=== PATIENT | female | born 1985 | race Caucasian/White ===

== ENCOUNTER 2016-06-28 10:46 | Emergency (ER) | payer MEDICAID ==
[~2016-06-28] VITALS: Ht 149.9 cm; Wt 83.9 kg
[2016-06-28 10:46] VITALS: BP 116/53; PULSE 61; RESP 18; TEMP 96.7; O2SAT 97
[~2016-06-28 10:46] MED LIST: BECL8.7A6 INH; PROAIR INH; Singulair PO; TRAMADOL PO; VICODIN PO
--- NOTE | 2016-06-28 10:46 | NUR ---
BROUGHT BACK TO BED #7 AND TRIAGED. PT IS ACTIVELY VOMITING. REPORT GIVEN TO CLARA/SANCHEZ
--- NOTE | 2016-06-28 10:48 | NUR ---
ED MD Davis at bedside for Medical Examination.
--- NOTE | 2016-06-28 10:50 | NUR ---
PT arrived to ED via walk in with chief complaint of ABD pain since last night. PT states ABD to localized to right side at 8/10. Reports N/V overnight. Blood present in emesis. Unable to tolerate PO intake. Pain on ABD palpation. Hx of pancreatitis. Reports SUAREZ. Patient appears in no acute distress. Will continue to monitor.
--- NOTE | 2016-06-28 10:55 | NUR ---
PT ambulated to restroom w/o assistance
[2016-06-28] MEDS ORDERED: NACL 0.9% 1,000 ML IV ONE (11:01)
--- NOTE | 2016-06-28 11:18 | NUR ---
Medicated per MD orders. IVF infusing with no s/s of infiltration at this time. Will continue to monitor
[2016-06-28 11:25] LABS: BASOPHILS % (AUTO) 0.5 % (0.0-2.0); EOSINOPHILS # (AUTO) 0.4 K/uL (0.0-0.4); EOSINOPHILS % (AUTO) 4.1 % (0.0-4.0); HEMATOCRIT 41.3 % (36-48); HEMOGLOBIN 13.5 g/dL (12.0-16.0); LYMPHOCYTES # (AUTO) 2.1 K/uL (1.0-5.5); LYMPHOCYTES % (AUTO) 21.7 % (20.5-51.5); MEAN CORPUSCULAR HEMOGLOBIN 27 pg (27-31); MEAN CORPUSCULAR HGB CONC 33 % (32-36); MEAN CORPUSCULAR VOLUME 81 fL (79.0-98.0); MONOCYTES # (AUTO) 0.3 K/uL (0.0-1.0); MONOCYTES % (AUTO) 2.8 % (1.7-9.3); NEUTROPHILS # (AUTO) 6.8 K/uL (1.8-7.7); NEUTROPHILS % (AUTO) 70.9 % (40.0-70.0); PLATELET COUNT (AUTO) 349 K/uL (130-430); RED CELL DISTRIBUTION WIDTH 13.5 % (9.0-15.0); WHITE BLOOD COUNT (AUTO) 9.6 K/uL (4.8-10.8)
[2016-06-28] MEDS ORDERED: PANTOPRAZOLE SODIUM 40 MG/VIAL (PROTONIX) IVP ONE (11:30)
[2016-06-28] MEDS ORDERED: KETOROLAC TROMETHAMINE 30 MG VIAL IVP ONE (11:30)
[2016-06-28] MEDS ORDERED: PROCHLORPERAZINE EDISYLATE 10 MG/2 ML VIAL IVP ONE (11:30)
[2016-06-28 11:34] LABS: CALCIUM 9.1 mg/dL (8.4-11.0); CREATININE 0.78 mg/dL (0.55-1.30)
[2016-06-28 11:37] LABS: ALBUMIN 4.1 g/dL (3.4-4.8); TOTAL BILIRUBIN 0.4 mg/dL (0.0-1.0); TOTAL PROTEIN, SERUM 8.1 g/dL (6.4-8.3)
[2016-06-28] MEDS ORDERED: ACETAMINOPHEN 500 MG TABLET PO ONE (12:00)
--- NOTE | 2016-06-28 12:30 | NUR ---
Patient resting quietly. No acute distress noted.
--- NOTE | 2016-06-28 13:00 | NUR ---
Dr. Davis at bedside speaking with pt regarding ED results and follow up.
--- NOTE | 2016-06-28 13:12 | NUR ---
Pt eloped without discharge instructions and RX of zofran.
--- NOTE | 2016-06-28 16:05 | NUR ---
Called at home to come and machine pecan picker RX. States that she had a family emergency and had to leave in a hurry. States that her mother is a nurse and took out the IV without complication. Advised that leaving hospital with IV is grounds for calling police. Pt verbalized understanding. States that she will come back for RX and staff will reassess IV site.
--- NOTE | 2016-06-28 20:43 | NUR ---
Patient given written and verbal discharge instructions and verbalizes understanding. Rx of Zofran given. Patient educated on pain management and to follow up with PMD. Opportunity for questions provided and answered.
== END 2016-06-28 13:12 | disposition left against medical advice (07) ==
LOC: SED 10:46
DX: K92.0 Hematemesis (principal); R10.9 Unspecified abdominal pain; R11.0 Nausea; J45.909 Unspecified asthma, uncomplicated; Z53.20 Procedure and treatment not carried out because of patient's decision for unspecified reasons
CPT/HCPCS: 36415; 80053; 81025; 83690; 85025; 96361; 96374; 96375; 99284; C9113; J0780; J1885; J7030

== ENCOUNTER 2016-08-12 21:21 | Emergency (ER) | payer MEDICAID ==
[~2016-08-12] VITALS: Ht 149.9 cm; Wt 83.9 kg
[2016-08-12 21:38] VITALS: BP 126/75; PULSE 78; RESP 18; TEMP 98.3; O2SAT 98
--- NOTE | 2016-08-12 21:44 | NUR ---
Patient to ER bed 8 to gown for evaluation. Side rails up. Report given to China LÓPEZ.
--- NOTE | 2016-08-12 21:50 | NUR ---
Patient to ER C/O watery diarrhea for the past 2 weeks. Patient states that she recently was taking ABX and diarrhea started soon after finishing the ABX treatment. Also C/O mild headache 4/10, epigastric pain 7/10, and nausea. AAOx4, unlabored breathing, no signs of acute distress.
--- NOTE | 2016-08-12 22:06 | NUR ---
ER MD Harvey at bedside for evaluation
[2016-08-12] MEDS ORDERED: NACL 0.9% 1,000 ML IV ONE (22:17)
--- NOTE | 2016-08-12 22:40 | NUR ---
# 20 gauge angiocath placed to right ac. Use of asceptic technique. Opsite placed over site. Blood return noted. Blood for lab drawn from site. Flushed with 10 cc of normal saline. No evidence of infiltration noted. Patient tolerated well.
[2016-08-12 22:49] LABS: BASOPHILS # (AUTO) 0.1 K/uL (0.0-0.2); BASOPHILS % (AUTO) 0.6 % (0.0-2.0); EOSINOPHILS # (AUTO) 0.3 K/uL (0.0-0.4); EOSINOPHILS % (AUTO) 3.7 % (0.0-4.0); HEMATOCRIT 39.2 % (36-48); HEMOGLOBIN 12.8 g/dL (12.0-16.0); LYMPHOCYTES # (AUTO) 2.7 K/uL (1.0-5.5); LYMPHOCYTES % (AUTO) 31.8 % (20.5-51.5); MEAN CORPUSCULAR HEMOGLOBIN 27 pg (27-31); MEAN CORPUSCULAR HGB CONC 33 % (32-36); MEAN CORPUSCULAR VOLUME 82 fL (79.0-98.0); MONOCYTES # (AUTO) 0.6 K/uL (0.0-1.0); MONOCYTES % (AUTO) 7.1 % (1.7-9.3); NEUTROPHILS # (AUTO) 4.9 K/uL (1.8-7.7); NEUTROPHILS % (AUTO) 56.8 % (40.0-70.0); PLATELET COUNT (AUTO) 335 K/uL (130-430); RED CELL DISTRIBUTION WIDTH 13.6 % (9.0-15.0); WHITE BLOOD COUNT (AUTO) 8.6 K/uL (4.8-10.8)
[2016-08-12 23:03] LABS: CALCIUM 9.1 mg/dL (8.4-11.0); CREATININE 0.8 mg/dL (0.55-1.30); POTASSIUM 3.5 mmol/L (3.5-5.1)
[2016-08-12 23:08] LABS: TOTAL BILIRUBIN 0.4 mg/dL (0.0-1.0); TOTAL PROTEIN, SERUM 7.8 g/dL (6.4-8.3)
[2016-08-12 23:13] LABS: BILIRUBIN,URINE NEGATIVE (NEGATIVE); BLOOD, URINE NEGATIVE (NEGATIVE); CLARITY/URINE CLEAR (CLEAR); COLOR,URINE YELLOW (YELLOW); GLUCOSE,URINE NEGATIVE (NEGATIVE); KETONES,URINE NEGATIVE (NEGATIVE); LEUKOCYTE ESTERASE ,URINE NEGATIVE (NEGATIVE); NITRITE, URINE NEGATIVE (NEGATIVE); PH,URINE 5.5 (5.0-8.0); PROTEIN URINE TRACE (NEGATIVE); UROBILINOGEN,URINE 0.2 (0.2-1.0)
[2016-08-12 23:25] LABS: BACTERIA,URINE FEW /HPF (None Seen); MUCUS,URINE None Seen /LPF (None Seen); RBC,URINE 0-3 /HPF (0-3)
--- NOTE | 2016-08-12 23:27 | NUR ---
Patient is unable to provide emiliana sample, after multiple attempts. EER MD Harvey aware.
[2016-08-13 00:34] VITALS: BP 122/73; PULSE 74; RESP 17; TEMP 98.1; O2SAT 97
--- NOTE | 2016-08-13 00:34 | NUR ---
Patient given written and verbal discharge instructions and verbalizes understanding. ER MD Harvey discussed with patient the results and treatment provided. Patient in stable condition. ID arm band removed. IV catheter removed intact and dressing applied, no active bleeding. Patient educated on pain management and to follow up with PMD. Pain Scale 0/10. Opportunity for questions provided and answered.
== END 2016-08-13 00:34 | disposition home or self-care (01) ==
LOC: SED 21:21
DX: R19.7 Diarrhea, unspecified (principal); J45.909 Unspecified asthma, uncomplicated; Z90.49 Acquired absence of other specified parts of digestive tract
CPT/HCPCS: 36415; 80053; 81000; 81025; 85025; 87086; 87186; 87230; 89055; 96360; 99284; J7030

== ENCOUNTER 2016-08-27 23:21 | Emergency (ER) | payer MEDICAID ==
[~2016-08-27] VITALS: Ht 149.9 cm; Wt 87.1 kg
[2016-08-27 23:22] VITALS: BP_SYST 124
--- NOTE | 2016-08-27 23:45 | NUR ---
Dr. Rivero at bedside examing patient.
--- NOTE | 2016-08-27 23:45 | NUR ---
Patient to ER bed 07 to gown for evaluation. Side rails up. Report given to MARIBEL Blount.
--- NOTE | 2016-08-27 23:46 | NUR ---
Pt AOx4, ambulatory, presents to ED with complaint of abdominal pain, headache, nausea, diarrhea x 2 days. Pain 9/10. Pt states has hx of seizures and is afraid that her headache will trigger a seizure. Denies any allergies. No acute distress noted at this time. Will continue to monitor.
[2016-08-27] MEDS ORDERED: NACL 0.9% 1,000 ML IV ONE (23:48)
[2016-08-27 23:55] LABS: BILIRUBIN,URINE NEGATIVE (NEGATIVE); BLOOD, URINE NEGATIVE (NEGATIVE); CLARITY/URINE CLEAR (CLEAR); COLOR,URINE YELLOW (YELLOW); GLUCOSE,URINE NEGATIVE (NEGATIVE); KETONES,URINE NEGATIVE (NEGATIVE); LEUKOCYTE ESTERASE ,URINE TRACE (NEGATIVE); NITRITE, URINE NEGATIVE (NEGATIVE); PROTEIN URINE NEGATIVE (NEGATIVE); UROBILINOGEN,URINE 0.2 (0.2-1.0)
[2016-08-28] MEDS ORDERED: HYDROmorphone 1 MG INJ. 1 MG/ML AMPUL IM ONE
[2016-08-28] MEDS ORDERED: NACL 0.9% 1,000 ML IV ONE
[2016-08-28] MEDS ORDERED: ONDANSETRON HCL 4 MG/2 ML VIAL IVP ONE
[2016-08-28 00:04] LABS: BACTERIA,URINE FEW /HPF (None Seen); MUCUS,URINE None Seen /LPF (None Seen); RBC,URINE 0-3 /HPF (0-3)
[2016-08-28 00:17] LABS: BASOPHILS % (AUTO) 0.5 % (0.0-2.0); EOSINOPHILS # (AUTO) 0.6 K/uL (0.0-0.4); EOSINOPHILS % (AUTO) 6.3 % (0.0-4.0); HEMATOCRIT 37.2 % (36-48); HEMOGLOBIN 12.2 g/dL (12.0-16.0); LYMPHOCYTES # (AUTO) 3.4 K/uL (1.0-5.5); LYMPHOCYTES % (AUTO) 34.6 % (20.5-51.5); MEAN CORPUSCULAR HEMOGLOBIN 27 pg (27-31); MEAN CORPUSCULAR HGB CONC 33 % (32-36); MEAN CORPUSCULAR VOLUME 83 fL (79.0-98.0); MONOCYTES # (AUTO) 0.6 K/uL (0.0-1.0); MONOCYTES % (AUTO) 5.6 % (1.7-9.3); NEUTROPHILS # (AUTO) 5.3 K/uL (1.8-7.7); PLATELET COUNT (AUTO) 296 K/uL (130-430); RED CELL DISTRIBUTION WIDTH 13.8 % (9.0-15.0); WHITE BLOOD COUNT (AUTO) 9.9 K/uL (4.8-10.8)
[2016-08-28 00:23] LABS: CREATININE 0.75 mg/dL (0.55-1.30); POTASSIUM 3.6 mmol/L (3.5-5.1)
[2016-08-28 00:30] LABS: ALBUMIN 3.5 g/dL (3.4-4.8); TOTAL BILIRUBIN 0.1 mg/dL (0.0-1.0); TOTAL PROTEIN, SERUM 6.9 g/dL (6.4-8.3)
[2016-08-28 00:33] LABS: PROTHROMBIN TIME 10.7 SECS (9.5-12.5)
--- NOTE | 2016-08-28 01:00 | NUR ---
Patient reports pain 3/10 30 minutes after administration of Dilaudid. No adverse reactions noted. Will continue to monitor.
[2016-08-28] MEDS ORDERED: HYDROmorphone 1 MG INJ. 1 MG/ML AMPUL IVP ONE (02:15)
--- NOTE | 2016-08-28 03:00 | NUR ---
Patient reports pain 3/10 25 minutes after administration of Dilaudid. No adverse reactions noted. Will continue to monitor.
[2016-08-28 03:05] VITALS: BP_SYST 117
--- NOTE | 2016-08-28 03:05 | NUR ---
Patient given written and verbal discharge instructions and verbalizes understanding. ER MD discussed with patient the results and treatment provided. Patient in stable condition. ID arm band removed. IV catheter removed intact and dressing applied, no active bleeding. Rx of Zofran and Tylenol with Codeine #3 given. Patient educated on pain management and to follow up with PMD. Pain Scale 3/10. Opportunity for questions provided and answered.
== END 2016-08-28 03:05 | disposition home or self-care (01) ==
LOC: SED 23:21
DX: J11.1 Influenza due to unidentified influenza virus with other respiratory manifestations (principal); G44.209 Tension-type headache, unspecified, not intractable; J45.909 Unspecified asthma, uncomplicated
CPT/HCPCS: 36415; 80053; 81000; 82150; 83690; 85025; 85610; 85730; 86710; 87086; 96361; 96372; 96374; 96375; 99284; J1170; J2405; J7030

== ENCOUNTER 2017-02-03 21:59 | Emergency (ER) | payer MEDICAID ==
[~2017-02-03] VITALS: Ht 157.5 cm; Wt 65.3 kg
[2017-02-03 21:59] VITALS: BP_SYST 131
[2017-02-03] MEDS ORDERED: OXYCODONE/ACETAMINOPHEN *10*mg/325 mg TABLET PO ONE (23:30)
[2017-02-03 23:35] LABS: BILIRUBIN,URINE NEGATIVE (NEGATIVE); BLOOD, URINE TRACE (NEGATIVE); CLARITY/URINE CLEAR (CLEAR); COLOR,URINE YELLOW (YELLOW); GLUCOSE,URINE NEGATIVE (NEGATIVE); KETONES,URINE NEGATIVE (NEGATIVE); LEUKOCYTE ESTERASE ,URINE NEGATIVE (NEGATIVE); NITRITE, URINE NEGATIVE (NEGATIVE); PROTEIN URINE NEGATIVE (NEGATIVE); UROBILINOGEN,URINE 0.2 (0.2-1.0)
[2017-02-03 23:44] LABS: BACTERIA,URINE FEW /HPF (None Seen); RBC,URINE 0-3 /HPF (0-3); WBC,URINE 0-3 /HPF (0-3)
[2017-02-03] MEDS ORDERED: OXYCODONE/ACETAMINOPHEN *10*mg/325 mg TABLET ONE (23:53)
[2017-02-04 00:13] VITALS: BP_SYST 128
== END 2017-02-04 00:13 | disposition home or self-care (01) ==
LOC: SED 21:59
DX: A08.4 Viral intestinal infection, unspecified (principal); J45.909 Unspecified asthma, uncomplicated; Z98.51 Tubal ligation status
CPT/HCPCS: 74000-TC; 81000-TC; 81025; 99285

== ENCOUNTER 2017-02-05 00:38 | Emergency (ER) | payer MEDICAID ==
[~2017-02-05] VITALS: Ht 157.5 cm; Wt 64.4 kg
[2017-02-05 00:50] VITALS: BP_SYST 127
[2017-02-05] MEDS ORDERED: KETOROLAC TROMETHAMINE 60 MG/2 ML VIAL IM ONE (01:15)
[2017-02-05 02:22] VITALS: BP_SYST 124
== END 2017-02-05 02:22 | disposition home or self-care (01) ==
LOC: SED 00:38
DX: R10.9 Unspecified abdominal pain (principal); J45.909 Unspecified asthma, uncomplicated
CPT/HCPCS: 96372; 99283; J1885

== ENCOUNTER 2017-04-03 05:01 | Inpatient (IN) | payer MEDICAID ==
[~2017-04-03] VITALS: Ht 149.9 cm; Wt 75.4 kg
[~2017-04-03 05:01] MED LIST changes: -BECL8.7A6 INH; +IMI50 PO; +LEVE500T13 PO; -PROAIR INH; -Singulair PO; -TRAMADOL PO; -VICODIN PO
--- NOTE | 2017-04-03 05:14 | NUR ---
Placed in room 02 . Placed on nuclear monitoring technician, blood pressure machine and pulse oximeter. To gown for exam. Side rails up. Report given to MARIBEL Bernal.
--- NOTE | 2017-04-03 05:15 | NUR ---
Patient AAO x4, sitting in bed c/o neck and leg pain, states she has seizures and " I need to be admitted. I just left [facility] and was admitted, but I left because they didn't have any beds and my doctor told me to come here." Seizure pads placed on bed. Patient vital signs within normal range.No acute distress noted. Will continue to monitor.
[2017-04-03 05:16] VITALS: BP_SYST 121
--- NOTE | 2017-04-03 05:20 | NUR ---
ER at bedside examining patient.
[2017-04-03] MEDS ORDERED: LORazepam 2 MG/ML VIAL (FOR ER USE) IVP ONE (05:30)
[2017-04-03] MEDS ORDERED: NACL 0.9% 1,000 ML IV ONE (05:30)
[2017-04-03] MEDS ORDERED: ONDANSETRON HCL 4 MG/2 ML VIAL IVP ONE (05:30)
--- NOTE | 2017-04-03 05:40 | NUR ---
Patient gagging into emesis bag, no emesis noted.
[2017-04-03] MEDS ORDERED: KETOROLAC TROMETHAMINE 30 MG VIAL IVP ONE (05:45)
--- NOTE | 2017-04-03 05:45 | NUR ---
# 22 gauge angiocath placed to L Arm. Use of asceptic technique. Opsite placed over site. Blood return noted. Two patient identifiers used. Blood for lab drawn from site. Flushed with 10 cc of normal saline. No evidence of infiltration noted. Patient tolerated well.
--- NOTE | 2017-04-03 06:15 | NUR ---
Patient resting quietly. No acute distress noted. Vital signs within normal range.
--- NOTE | 2017-04-03 06:19 | NUR ---
Patient to radiology via wheelchair with tech.
[2017-04-03 06:26] LABS: HEMATOCRIT 41.2 % (36-48); HEMOGLOBIN 13.4 g/dL (12.0-16.0); MEAN CORPUSCULAR HEMOGLOBIN 27 pg (27-31); MEAN CORPUSCULAR HGB CONC 33 % (32-36); MEAN CORPUSCULAR VOLUME 84 fL (79.0-98.0); PLATELET COUNT (AUTO) 311 K/uL (130-430); RED BLOOD CELL COUNT(AUTO) 4.89 MIL/uL (4.2-6.2); RED CELL DISTRIBUTION WIDTH 13.4 % (9.0-15.0); WHITE BLOOD COUNT (AUTO) 9.1 K/uL (4.8-10.8)
[2017-04-03 06:48] LABS: ATYPICAL LYMPHOCYTES % 0 % (0-0); BAND % (MANUAL) 2 % (0-6); BASOPHILS % (MANUAL) 0 % (0-2); EOSINOPHILS % (MANUAL) 5 % (0-7); LYMPHOCYTES % (MANUAL) 64 % (20-46); MONOCYTES % (MANUAL) 4 % (0-11)
[2017-04-03 06:49] LABS: TOTAL BILIRUBIN 0.2 mg/dL (0.0-1.0)
[2017-04-03 06:59] LABS: ALBUMIN 3.7 g/dL (3.4-4.8); CALCIUM 9.5 mg/dL (8.4-11.0); CREATININE 0.58 mg/dL (0.55-1.30)
[2017-04-03 07:01] LABS: POTASSIUM 4.1 mmol/L (3.5-5.1)
[2017-04-03] MEDS ORDERED: ONDANSETRON HCL 4 MG/2 ML VIAL IVP PRN (07:15)
[2017-04-03 07:20] LABS: BILIRUBIN,URINE NEGATIVE (NEGATIVE); BLOOD, URINE NEGATIVE (NEGATIVE); CLARITY/URINE SL HAZY (CLEAR); COLOR,URINE YELLOW (YELLOW); GLUCOSE,URINE NEGATIVE (NEGATIVE); KETONES,URINE NEGATIVE (NEGATIVE); LEUKOCYTE ESTERASE ,URINE TRACE (NEGATIVE); NITRITE, URINE NEGATIVE (NEGATIVE); PH,URINE 6.5 (5.0-8.0); PROTEIN URINE TRACE (NEGATIVE); UROBILINOGEN,URINE 0.2 (0.2-1.0)
--- NOTE | 2017-04-03 07:26 | NUR ---
Patient will be admitted to care of Dr. Neumann. Admitted to Tele unit. Will go to room 114. Belongings list completed. Summary report printed. Report will be given at bedside.
--- NOTE | 2017-04-03 07:29 | NUR ---
ADMISSION NOTE Received patient from ER via gurney. Patient admitted with diagnosis of Seizures . Patient is awake, alert, oriented X . Patient oriented to hospital room, call light, toileting, pain management and safety-teach back done. Patient informed that Irasema will be her nurse and that their room number is [114-b]. Personal belongings checked and Belongings List documented. Call light within reach.
[2017-04-03 07:32] VITALS: BP_SYST 106
[2017-04-03 08:00] LABS: BACTERIA,URINE MODERATE /HPF (None Seen); RBC,URINE 0-3 /HPF (0-3)
[2017-04-03 08:01] LABS: MUCUS,URINE 1+ /LPF (None Seen)
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
[2017-04-03 08:23] LABS: OPIATE, URINE POSITIVE (NEG <=100)
[2017-04-03 08:24] LABS: BARBITURATE, URINE NEGATIVE (NEG <=200); BENZODIAZEPINE, URINE POSITIVE (NEG <=150); CANNABINOID, URINE NEGATIVE (NEG <=50); COCAINE, URINE NEGATIVE (NEG <=150); METHAMPHETAMINES SCREEN,URINE NEGATIVE (NEG <=500); PHENCYCLIDINE SCREEN,URINE NEGATIVE (NEG <=25); URINE AMPHETAMINE NEGATIVE (NEG <=500); URINE METHADONE NEGATIVE (NEG <=200); URINE OXYCODONE SCREEN POSITIVE (NEG <=100)
[2017-04-03 08:25] LABS: UR TRICYCLIC ANTIDEPRESSANTS NEGATIVE (NEG <=300); URINE PROPOXYPHENE SCREEN NEGATIVE (NEG <=300)
[2017-04-03 08:45] VITALS: BP_SYST 106
--- NOTE | 2017-04-03 10:41 | NUR ---
ROUNDS PT IS AWAKE AND ALERT. NO SIGNS OR SYMPTOMS OF DISTRESS OR SOB NOTED. PT COMPLAINS OF PAIN IN THE NECK. PT DOES NOT HAVE ANY PAIN MEDICATION. DR. BYRD HAS BEEN PAGED. BED IS AT LOWEST POSITION, CALL LIGHT WITHIN REACH, TWO SIDE RAILS UP. WILL CONTINUE TO MONITOR.
--- NOTE | 2017-04-03 10:42 | NUR ---
PAGED PAGED RAFAEL MC AT [phone] SPOKE WITH ARUN.
[2017-04-03] MEDS ORDERED: levETIRAcetam 500 MG TABLET PO ONE ×2 (11:00→15:45)
[2017-04-03] MEDS: HYDROmorphone 2 MG TAB PO PRN ×2 (11:34→20:25)
--- NOTE | 2017-04-03 11:37 | NUR ---
DR BYRD CALLED BACK SPOKE WITH DR. BYRD REGARDING PT AND HE ORDERED KEPPRA AND DILAUDID FOR PAIN. PT WAS GIVEN BOTH.
--- NOTE | 2017-04-03 12:29 | NUR ---
ROUNDS PT IS SLEEPING BUT IS EASILY AWAKEN. NO SIGNS OR SYMPTOMS OF DISTRESS OR SOB NOTED. PT STATES PAIN PAIN HAS DECREASED TO A 7 OUT OF 10 FROM EARLIER. PT REMOVED NECK BRACE BECAUSE SHE STATES IT DOES NOT HELP WITH HER TRYING TO FALL ASLEEP. BED IS AT LOWEST POSITION, CALL LIGHT WITHIN REACH, BED ALARM IS ON, TWO SIDE RAILS UP. WILL CONTINUE TO MONITOR.
[2017-04-03 12:56] VITALS: BP_SYST 113
[2017-04-03] MEDS: LORazepam 2 MG/ML VIAL IVP PRN ×2 (13:49→22:02)
--- NOTE | 2017-04-03 13:51 | NUR ---
PRN ATIVAN GIVEN PT IS CRYING AND STATES THAT SHE IS ANXIOUS AND AGITATED.
--- NOTE | 2017-04-03 14:22 | NUR ---
ROUNDS PT IS AWAKE AND ALERT. PT IS VISIBLY MORE RELAXED. PT STATES HEADACHE IS STILL PRESENT BUT SHE DOES NOT HAVE ANXIETY ANY MORE. RELOCATED IV TO RIGHT FOREARM 22G DUE TO PREVIOUS IV INFILTRATION. CURRENT NEEDS ARE MET. BED IS AT LOWEST POSITION, CALL LIGHT WITHIN REACH, TWO SIDE RAILS UP. WILL CONTINUE TO MONITOR.
[2017-04-03 16:00] VITALS: BP_SYST 110
--- NOTE | 2017-04-03 16:02 | NUR ---
CONSULTATION PAGED REASON FOR CONSULTATION:SEIZURE WAS CONSULT CALLED?Y PERSON WHO WAS NOTIFIED:NICKOLAS BECKFORD CONSULTING PHYSICIAN:NICKOLAS BECKFORD BENEFITS CONSULTING ANALYST SPECIALTY:NEURO BENEFITS CONSULTING ANALYST PHONE NUMBER:[phone] ORDERING PHYSICIAN:[facility]
--- NOTE | 2017-04-03 16:07 | NUR ---
CONSULTATION PAGED REASON FOR CONSULTATION:PAIN WAS CONSULT CALLED?Y PERSON WHO WAS NOTIFIED:LEFT VOICEMAIL CONSULTING PHYSICIAN:KATHRYN WHITE RIVETER HAND SPECIALTY:PAIN TRANSPORTATION MODELER PHONE NUMBER:[phone] ORDERING PHYSICIAN:RAFAEL MC
--- NOTE | 2017-04-03 16:22 | NUR ---
ROUNDS PT IS SLEEPING BUT IS EASILY AWAKEN. GAVE ORDERED KEPPRA. PT IS COMPLAINING OF PAIN BUT SHE IS NOT DUE TO PAIN MEDICATION AT THIS TIME. ADVISED HER THAT IMETREX WAS AVAILABLE FOR HER MIGRAINE BUT PT REFUSED. BED IS AT LOWEST POSITION, CALL LIGHT WITHIN REACH, TWO SIDE RAILS UP. WILL CONTINUE TO MONITOR.
--- NOTE | 2017-04-03 17:30 | NUR ---
DR. REBEKAH PATTON ORDERED EEG.
--- NOTE | 2017-04-03 18:25 | NUR ---
CLOSING NOTE PT IS RESTING IN BED, NO SIGNS OR SYMPTOMS OF DISTRESS OR SOB NOTED. CURRENT NEEDS ARE MET. BED IS AT LOWEST POSITION, CALL LIGHT WITHIN REACH, TWO SIDE RAILS UP. WILL CONTINUE TO MONITOR UNTIL CARE AND REPORT IS GIVEN TO ATHLETICS TEACHER NURSE.
--- NOTE | 2017-04-03 18:40 | NUR ---
DR. YOVANI PATTON
--- NOTE | 2017-04-03 19:25 | NUR ---
BEDSIDE REPORT DONE. PATIENT IN BED AWAKE ORIENTED X4.DENIES SOB ,HAS TOLERABLE NECK AND LEG PAIN. ASKING WHEN IS PAIN MED DUE. WEARING SOFT COLLAR.ON TELEMETRY,SINUS RHYTHM. SALINE LOCK TO LEFT AC. TOLD PATIENT WILL BE BACK FOR VITAL SIGNS AND MEDS.
--- NOTE | 2017-04-03 19:55 | NUR ---
SAW PATIENT ON THE DOOR ON WAY TO BATHROOM.
--- NOTE | 2017-04-03 20:03 | NUR ---
SEEN PATIENT ON THE FLOOR SUPINE POSITION SHAKING ARMS AND LEGS FOR 2 SECONDS. CALLED HER NAME X2 SLOWLY OPENS HIS EYES.CALLED FOR HELP ,THEN RAPID RESPONSE CALLED AT 2006HR. TEAM ARRIVED. PATIENT FULLY AWAKE.PATIENT MANAGED TO GET UP WITH ASSIST. CHECKED HEAD ARMS LEGS FOR INJURY,NO BRUISES OR BUMPS. MOVED TO ROOM 113A. COMPLAIN OF HEAD ACHE ,NOT NEW ,PAIN ON BOTH LEGS. DILAUDID 2MG IV PO GIVEN. 2024HR. CARSON WU NOTIFIED, NO ORDERS. STATED DO NOT GIVE TOO MUCH PAIN MEDS.
[2017-04-03 20:15] VITALS: BP_SYST 111
--- NOTE | 2017-04-03 20:15 | NUR ---
Paged Dr. Neumann Paged Dr. Neumann, dialed [phone], s/w Selvin.
[2017-04-03] MEDS: levETIRAcetam 500 MG TABLET PO SCH (20:25)
[2017-04-03] MEDS ORDERED: SUMAtriptan SUCCINATE 50 MG TABLET PO PRN (21:00)
[2017-04-03] MEDS ORDERED: levETIRAcetam 500 MG TABLET PO SCH (21:00)
--- NOTE | 2017-04-03 22:02 | NUR ---
ANXIETY: ANXIOUS,TALKING TO FRIEND VIA CELL PHONE,ASKED FOR MEDS TO RELAX HER. ATIVAN 1MG IV GIVEN.
[2017-04-04 00:30] VITALS: BP_SYST 106
[2017-04-04] MEDS: HYDROcodone/ACETAMIN 10-325 MG TAB PO PRN ×4 (01:41→21:01)
--- NOTE | 2017-04-04 01:41 | NUR ---
PAIN: AWAKENED. COMPLAIN OF HEADACHE/BACK AND LEGS PAIN .NORCO 10MG PO GIVEN.
--- NOTE | 2017-04-04 03:30 | NUR ---
ROUNDS: PATIENT SLEEPING. NO DISTRESS.
--- NOTE | 2017-04-04 06:30 | NUR ---
CLOSING: PATIENT WOKE UP. ASSISTED TO BATHROOM TO VOID. COMPLAIN OF PAIN. DILAUDID 2MG PO GIVEN. BED ALARM ON. RE EDUCATED ON FALL PRECAUTION.WILL GIVE REPORT TO AM RNR FOR CONTINUITY OF CARE.NO ACUTE CARDIOPULMONARY DISTRESS.
[2017-04-04] MEDS: HYDROmorphone 2 MG TAB PO PRN ×4 (06:47→23:57)
[2017-04-04 08:30] VITALS: BP_SYST 106
--- NOTE | 2017-04-04 08:30 | NUR ---
OPENING NOTE REPORT IS RECEIVED FROM BOX LINING MACHINE FEEDER NURSE AND CARE IS ENDORSED OVER TO MYSELF. PT IS RECEIVED AWAKE, ALERT, AND ORIENTED X4. PT COMPLAINS OF NECK PAIN AND HEADACHE. I ASKED PT IF SHE WOULD LIKE IMETREX FOR HEADACHE BUT PT REFUSED AND WANTS NORCO INSTEAD. MORNING MEDICATIONS WERE GIVEN AND TOLERATED WELL. I ADVISED PT OF INCREASE RISK OF FALLS AND TURNED ON PT BED ALARM. SIDE RAILS ARE PADDED AND THREE ARE UP, CALL LIGHT AND PHONE ARE WITHIN REACH AND PT WAS TAUGHT HOW TO USE THEM. WILL CONTINUE TO MONITOR.
[2017-04-04] MEDS: levETIRAcetam 500 MG TABLET PO SCH ×2 (08:47→21:00)
--- NOTE | 2017-04-04 10:49 | NUR ---
ROUNDS PT IS RESTING IN BED ON HER CELL PHONE. NO SIGNS OR SYMPTOMS OF DISTRESS OR SOB NOTED. CURRENT NEEDS ARE MET. BED IS AT LOWEST POSITION, BED ALARM IS ON, THREE SIDE RAILS UP, CALL LIGHT WITHIN REACH, PHONE WITHIN REACH. WILL CONTINUE TO MONITOR.
--- NOTE | 2017-04-04 11:04 | NUR ---
GAVE PRN IMETREX PT COMPLAINED OF MIGRANE AND GAVE PRN IMETREX.
[2017-04-04] MEDS: LORazepam 2 MG/ML VIAL IVP PRN ×2 (11:53→22:16)
--- NOTE | 2017-04-04 11:59 | NUR ---
GAVE PRN ATIVAN PT STATES THAT HER PAIN LEVEL HAS INCREASED BUT DUE TO LAST ADMINISTRATION OF DILAUDID SHE IS NOT DUE YET. I ASKED HER IF SHE WANTS ATIVAN SINCE SHE IS AGITATED SHE SAID YES. I ADMINISTERED IV ATIVAN. PT TOLERATED IT WELL.
--- NOTE | 2017-04-04 12:00 | NUR ---
EEG AT BEDSIDE.
[2017-04-04 12:34] VITALS: BP_SYST 117
--- NOTE | 2017-04-04 12:45 | NUR ---
ROUNDS PT IS AWAKE AND ALERT. NO SIGNS OR SYMPTOMS OF DISTRESS OR SOB NOTED. EEG IS COMPLETE. PT COMPLAINED OF PAIN IN NECK AREA 9 OUT OF 10 AND GAVE PRN NORCO. ADVISED OF INCREASED RISK FOR FALLS AND TO USE THE CALL LIGHT FOR ASSISTANCE GETTING UP. BED IS AT LOWEST POSITION, CALL LIGHT WITHIN REACH, THREE SIDE RAILS UP, BED ALARM IS ON. WILL CONTINUE TO MONITOR.
--- NOTE | 2017-04-04 14:11 | NUR ---
ROUNDS PT IS AWAKE AND ALERT. NO SIGNS OR SYMPTOMS OF DISTRESS OR SOB NOTED. PT WANTED TO USE THE BATHROOM AND I ASSISTED PT. I HAD HER SIT ON THE SIDE OF THE TO DANGLE HER FEET, THEN USED A WALKER TO WALK TO THE BATHROOM. PT TOLERATED WALK WELL BUT COMPLAINED OF MILD NAUSEA. ADVISED PT IF SHE WANTED ZOFRAN FOR THE NAUSEA BUT SHE REFUSED STATING THAT ONCE SHE RETURNS TO BED, IT WILL SUBSIDE. ADVISED PT THAT SHE WOULD BE ELIGIBLE FOR NEXT PAIN MEDICATION AROUND 1500. ASSISTED BACK TO BED, TURNED ON BED ALARM, THREE SIDE RAILS UP, BED IS AT LOWEST POSITION, CALL LIGHT WITHIN REACH. WILL CONTINUE TO MONITOR.
--- NOTE | 2017-04-04 14:45 | NUR ---
DR. CARSON PATTON DR. SPOKE TO PT REGARDING PAIN MANAGEMENT OPTIONS AND THAT NO IV DILAUDID IS AVAILABLE IN THE HOSPITAL.
--- NOTE | 2017-04-04 15:05 | NUR ---
PRN NORCO PT REQUESTED NORCO FOR PAIN OF 6 OUT OF 10 IN THE NECK AREA. ADVISED PT OF INCREASE RISK FOR FALLS AND WROTE ON WHITE BOARD WHEN THE NEXT PAIN MEDICATION IS ELIGIBLE. MOTHER WAS AT BEDSIDE. BED IS AT LOWEST POSITION, CALL LIGHT WITHIN REACH, THREE SIDE RAILS UP, BED ALARM IS ON. WILL CONTINUE TO MONITOR.
--- NOTE | 2017-04-04 15:40 | NUR ---
WALKED WITH PT PT WAS COMPLAINING OF BEING TIRED OF BEING IN BED AND ASSISTED PT WITH WALKING WITH A WALKER DOWN THE MURRY AND SHE DID WELL. NO SIGNS OR SYMPTOMS OF DISTRESS WHILE WALKING. ASSISTED PT BACK TO BED AND ADVISED PT TO USE CALL LIGHT WHEN SHE NEEDS TO GET UP. CURRENT NEEDS ARE MET. BED IS AT LOWEST POSITION, CALL LIGHT WITHIN REACH, THREE SIDE RAILS UP, BED ALARM IS ON. WILL CONTINUE TO MONITOR.
--- NOTE | 2017-04-04 16:12 | NUR ---
PSYCH CONSULT CALLED TO DR NEGRO, RE: DEPRESSION. SPOKE TO MARK
--- NOTE | 2017-04-04 16:19 | NUR ---
ROUNDS PT IS AWAKE AND ALERT AND IS CURRENTLY ON HER CELL PHONE. NO SIGNS OR SYMPTOMS OF DISTRESS OR SOB NOTED. PT STATES PAIN HAS REDUCED TO 3 OUT OF 10 AND IS CURRENTLY TOLERABLE. ADVISED PT OF NEXT PAIN MEDICATION WHEN IT SI AVAILABLE NEXT AND I WROTE IT ON THE WHITE BOARD. CURRENT NEEDS ARE MET. BED IS AT LOWEST POSITION, CALL LIGHT WITHIN REACH, THREE SIDE RAILS UP, BED ALARM IS ON. WILL CONTINUE TO MONITOR.
[2017-04-04 16:43] VITALS: BP_SYST 115
--- NOTE | 2017-04-04 18:09 | NUR ---
CLOSING NOTE PT IS LEFT RESTING IN BED. NO SIGNS OR SYMPTOMS OF DISTRESS OR SOB NOTED. CURRENT NEEDS ARE MET. BED IS AT LOWEST POSITION, BED ALARM IS ON, CALL LIGHT WITHIN REACH, THREE SIDE RAILS UP, PT ADVISED TO USE CALL LIGHT IF SHE WANTS TO GET UP. WILL CONTINUE TO MONITOR UNTIL CARE IS ENDORSED OVER TO REQUISITION APPROVER NURSE.
--- NOTE | 2017-04-04 18:37 | NUR ---
GAVE PRN DILAUDID PER PT REQUEST OF PAIN LEVEL OF 8 OUT OF 10 IN NECK AREA. PT ADVISED OF INCREASED RISK OF FALLS AND TO USE CALL LIGHT IF SHE WANTS TO GET UP. BED IS AT LOWEST POSITION, CALL LIGHT WITHIN REACH, THREE SIDE RAILS UP, BED ALARMS IS ON. WILL CONTINUE TO MONITOR.
--- NOTE | 2017-04-04 19:50 | NUR ---
ROUNDS PATIENT RESTING COMFORTABLY IN BED, NOT IN DISTRESS, VITALS STABLE. DENIES ANY PAIN AND DISCOMFORT AT THIS TIME. ASSESSMENT DONE AND DOCUMENTED. SEE FLOWSHEET. NEEDS ATTENDED TO. SAFETY, FALL AND SEIZURE PRECAUTION MEASURES IN PLACED. BED IN LOW AND LOCKED POSITION. CALL LIGHT PLACED WITHIN REACH.
[2017-04-04 20:00] VITALS: BP_SYST 107
--- NOTE | 2017-04-04 21:10 | NUR ---
MEDICATION DUE MEDICATIONS GIVEN SCHEDULED, TOLERATED WELL. WILL CONTINUE TO MONITOR.
[2017-04-04] MEDS ORDERED: DEXTROSE 50% JECT 50 ML DISP.SYRIN IVP PRN (21:15)
[2017-04-04] MEDS ORDERED: INSULIN REGULAR, HUMAN 100 UNITS/ML, 10 ML VIAL (novoLIN R) SUBCUT PRN (21:15)
--- NOTE | 2017-04-04 22:44 | NUR ---
pagealejandra paged for Dr Joesph Pittman, dialed . s/w Nae.
--- NOTE | 2017-04-05 00:10 | NUR ---
PATIENT RESTING: Patient resting quietly. No acute distress noted. Vital signs within normal range.
[2017-04-05 00:31] VITALS: BP_SYST 98
[2017-04-05] MEDS: LORazepam 2 MG/ML VIAL IVP PRN ×2 (01:23→11:19)
--- NOTE | 2017-04-05 04:13 | NUR ---
PATIENT RESTING: Patient resting quietly. No acute distress noted. Vital signs within normal range.
[2017-04-05] MEDS: HYDROmorphone 2 MG TAB PO PRN (06:33)
--- NOTE | 2017-04-05 06:47 | NUR ---
CLOSING NOTES PATIENT AWAKE, VITALS STABLE, ACCU CHECK DONE WITH BLOOD SUGAR OF 89. C/O OF SEVERE PAIN ON HER NECK, 8/10 PAIN SCALE. DILAUDID 2 MG PO GIVEN ORDERED PRN. ALL NEEDS ATTENDED TO. SAFETY, FALL AND SEIZURE PRECAUTION MEASURES MAINTAINED. CALL LIGHT PLACED WITHIN REACH.
[2017-04-05 07:52] VITALS: BP_SYST 98
--- NOTE | 2017-04-05 08:00 | NUR ---
Received patient in bed alert and oriented x4. She verbalized frustration that she is not ordered Dilaudid IV in her hospital stay this time. She stated she is having headaches and right sided neck pains. She requests that Dr. Pink, the pain management doctor be called for IV Dilaudid pain medications. She has a neck immobilizer collar on, ambulated with walker, gait appear steady. Informed her that I will contact Dr. Pink and relay her request.
--- NOTE | 2017-04-05 08:54 | NUR ---
PSYCH CONSULT FOLLOW UP REASON FOR CONSULTATION:DEPRESSION WAS CONSULT CALLED?Y PERSON WHO WAS NOTIFIED:ANDRES CONSULTING PHYSICIAN:HEVER DUEÑAS (CALLIE PERALTA AIRPORT MANAGER) AUTOMATIC PATTERN EDGER SPECIALTY:PSYCH AUTOMATIC PATTERN EDGER PHONE NUMBER:[phone] ORDERING PHYSICIAN:RAFAEL MC
[2017-04-05] MEDS: levETIRAcetam 500 MG TABLET PO SCH (09:21)
--- NOTE | 2017-04-05 10:00 | NUR ---
Pt in her bed upset that Dr. Pink has not come nor did her attending doctor. She stated that if she do not get IV Dilaudid she wants to go home. She stated she will go to another hospital ([facility]) where she can get good pain control with IV pain medications. She stated she has reported Dr. Neumann and the hospital to the [facility] but they have not done anything. She stated she report to the State as well. Relayed message to Dr. Neumann. Discharge order done. He spoke with patient with charge nurse.
--- NOTE | 2017-04-05 11:32 | NUR ---
Pt c/o nausea, no vomiting. She is requesting medication to rid of her nausea. Zofran 4 mg IV given. Pt also c/o of a lot of pains, requesting IV Dilaudid but no order. She is waiting for Dr. Pink if he would order IV Dilaudid while she is inpatient. She wants him called. Dr. Pink paged. Awaiting for his response. Pt requested Ativan IV while waiting for Dr. Pink. Ativan 1 mg IV given. Pt laid in bed. Instructed her to use her nurse call light, not to get up on her own for assistance. She verbalized understanding and compliance. Pt has walker at bedside. 1039 - Patient calls back and wants to be discharged so she can go to another hospital ([facility] Will contact Attending, Dr. Neumann.
[2017-04-05] MEDS: HYDROcodone/ACETAMIN 10-325 MG TAB PO PRN (11:54)
--- NOTE | 2017-04-05 12:30 | NUR ---
Pt all ready for discharge. She stated she will be picked up by her sister in law. Pt wheeled out to lobby and waited for her sister in law to arrive. She was picked up in a private white van by her sister in law and family. Patient in no distress but is upset that she was not given IV pain meds this inpt hospital admission.
[2017-04-05 12:31] VITALS: BP_SYST 138
[2017-04-05 12:49] VITALS: BP_SYST 99
--- NOTE | 2017-04-07 15:59 | NUR ---
Discharge Follow Up Phone Call: MASTER CONTROL TECHNICIAN called and spoke with pt ([phone]). Pt states that she is still having pain; pt's prescriptions have been filled; there are no questions regarding discharge or medication instructions; pt requested assistance with scheduling PCP follow up appointment. MASTER CONTROL TECHNICIAN called pt's PCP, Dr. Trivedi's, office ([phone]) and spoke with Kervin. MASTER CONTROL TECHNICIAN obtained a follow up appointment for pt on 04/08/17 at 10:30am. MASTER CONTROL TECHNICIAN called pt back and provided follow up appointment details. Pt did not express any other needs or concerns and denied the need for additional follow up at this time. No further follow up phone calls required at this time.
== END 2017-04-05 13:20 | disposition home or self-care (01) | DRG 53 ==
LOC: SED 05:01 → STU 07:14
PROVIDERS: ADMIT Internal Medicine; ATTEND Internal Medicine
DX: G40.909 Epilepsy, unspecified, not intractable, without status epilepticus (principal); F11.20 Opioid dependence, uncomplicated; G89.4 Chronic pain syndrome; G43.909 Migraine, unspecified, not intractable, without status migrainosus; J45.909 Unspecified asthma, uncomplicated; E66.9 Obesity, unspecified; Z68.33 Body mass index [BMI] 33.0-33.9, adult
CPT/HCPCS: 36415; 71046-TC; 80053; 80307; 81000-TC; 81025; 82962; 83735-TC; 84703; 85007; 85027; 87081; 87086; 93005; 95816; 96361; 96374; 96375; 99285; J1885; J2060; J2405; J7030

== ENCOUNTER 2018-05-14 13:27 | Emergency (ER) | payer MEDICAID ==
[~2018-05-14] VITALS: Ht 149.9 cm; Wt 79.4 kg
[~2018-05-14 13:27] MED LIST changes: -LEVE500T13 PO; +LEVE500T9 PO
[2018-05-14 13:41] VITALS: BP_SYST 158
[2018-05-14] MEDS ORDERED: KETOROLAC TROMETHAMINE 60 MG/2 ML VIAL IM ONE (13:45)
[2018-05-14 15:33] VITALS: BP_SYST 148
== END 2018-05-14 15:33 | disposition home or self-care (01) ==
LOC: SED 13:27
DX: S80.02XA Contusion of left knee, initial encounter (principal); G40.909 Epilepsy, unspecified, not intractable, without status epilepticus; G89.29 Other chronic pain; J45.909 Unspecified asthma, uncomplicated; J44.9 Chronic obstructive pulmonary disease, unspecified; E11.9 Type 2 diabetes mellitus without complications; I10 Essential (primary) hypertension; E07.9 Disorder of thyroid, unspecified; Z95.0 Presence of cardiac pacemaker; Z90.49 Acquired absence of other specified parts of digestive tract; Z98.51 Tubal ligation status; Z79.899 Other long term (current) drug therapy; W19.XXXA Unspecified fall, initial encounter; Y93.89 Activity, other specified; Y92.89 Other specified places as the place of occurrence of the external cause; Y99.8 Other external cause status
CPT/HCPCS: 73564; 96372; 99283; J1885

== ENCOUNTER 2018-10-25 05:21 | Emergency (ER) | payer MEDICAID ==
[~2018-10-25] VITALS: Ht 149.9 cm; Wt 73.9 kg
[2018-10-25 05:40] VITALS: BP_SYST 126
--- NOTE | 2018-10-25 05:40 | NUR ---
Patient to ER bed 04 to gown for evaluation. Side rails up. Report given to MARIBEL Hirsch.
--- NOTE | 2018-10-25 06:00 | NUR ---
Pt BIB family to ED C/O L Leg pain from S/P fall D/T having 2 seizure activities earlier today. Pt also states that her Mother is an RN and gave her 2 Toradol shots today without relief. No other complaints and or injuries noted. VSS no s/s of acute distress. Resting on gurney with rails up
--- NOTE | 2018-10-25 06:18 | NUR ---
Dr. Hutson bedside for Pt eval
[2018-10-25 06:43] LABS: BASOPHILS # (AUTO) 0.1 K/uL (0.0-0.2); BASOPHILS % (AUTO) 0.6 % (0.0-2.0); EOSINOPHILS % (AUTO) 0.1 % (0.0-4.0); HEMATOCRIT 38.6 % (36-48); HEMOGLOBIN 12.7 g/dL (12.0-16.0); LYMPHOCYTES # (AUTO) 1.9 K/uL (1.0-5.5); LYMPHOCYTES % (AUTO) 15.4 % (20.5-51.5); MEAN CORPUSCULAR HEMOGLOBIN 28 pg (27-31); MEAN CORPUSCULAR HGB CONC 33 % (32-36); MEAN CORPUSCULAR VOLUME 86 fL (79.0-98.0); MONOCYTES # (AUTO) 0.9 K/uL (0.0-1.0); MONOCYTES % (AUTO) 7.1 % (1.7-9.3); NEUTROPHILS # (AUTO) 9.5 K/uL (1.8-7.7); NEUTROPHILS % (AUTO) 76.8 % (40.0-70.0); PLATELET COUNT (AUTO) 303 K/uL (130-430); RED BLOOD CELL COUNT(AUTO) 4.48 MIL/uL (4.2-6.2); WHITE BLOOD COUNT (AUTO) 12.4 K/uL (4.8-10.8)
[2018-10-25] MEDS ORDERED: MORPHINE 4 MG/ML INJ. SYRINGE IM ONE (06:45)
[2018-10-25 06:58] LABS: CALCIUM 8.6 mg/dL (8.4-11.0); CREATININE 0.68 mg/dL (0.55-1.30); POTASSIUM 3.7 mmol/L (3.5-5.1)
--- NOTE | 2018-10-25 06:58 | NUR ---
Portable X Ray bedside, well tolerated
[2018-10-25 07:03] LABS: ALBUMIN 3.3 g/dL (3.4-4.8); TOTAL BILIRUBIN 0.3 mg/dL (0.0-1.0)
--- NOTE | 2018-10-25 07:15 | NUR ---
Received report from MARIBEL Hirsch.
[2018-10-25 07:18] LABS: BARBITURATE, URINE NEGATIVE (NEG <=200); BENZODIAZEPINE, URINE NEGATIVE (NEG <=150); CANNABINOID, URINE NEGATIVE (NEG <=50); COCAINE, URINE NEGATIVE (NEG <=150); METHAMPHETAMINES SCREEN,URINE POSITIVE (NEG <=500); OPIATE, URINE POSITIVE (NEG <=100); PHENCYCLIDINE SCREEN,URINE NEGATIVE (NEG <=25); UR TRICYCLIC ANTIDEPRESSANTS NEGATIVE (NEG <=300); URINE AMPHETAMINE NEGATIVE (NEG <=500); URINE METHADONE NEGATIVE (NEG <=200); URINE OXYCODONE SCREEN NEGATIVE (NEG <=100); URINE PROPOXYPHENE SCREEN NEGATIVE (NEG <=300)
--- NOTE | 2018-10-25 08:55 | NUR ---
pt resting comfortable in bed, No seizure activity seen, Mom here to take pt home
[2018-10-25 09:01] VITALS: BP_SYST 128
--- NOTE | 2018-10-25 09:03 | NUR ---
Patient given written and verbal discharge instructions and verbalizes understanding. ER MD discussed with patient the results and treatment provided. Patient in stable condition. ID arm band removed. IV catheter removed intact and dressing applied, no active bleeding. Rx of flexeril, naproxen given. Patient educated on pain management and to follow up with PMD. Pain Scale 0/10 Opportunity for questions provided and answered. Medication side effect fact sheet provided.
== END 2018-10-25 09:03 | disposition home or self-care (01) ==
LOC: SED 05:21
DX: S80.12XA Contusion of left lower leg, initial encounter (principal); R56.9 Unspecified convulsions; J45.909 Unspecified asthma, uncomplicated; Z79.899 Other long term (current) drug therapy; W18.39XA Other fall on same level, initial encounter; Y93.89 Activity, other specified; Y92.89 Other specified places as the place of occurrence of the external cause; Y99.8 Other external cause status
CPT/HCPCS: 36415; 70450-TC; 73564; 73590-TC; 80053; 80307; 84703; 85025; 96374; 99284; J2270

== ENCOUNTER 2019-01-19 12:08 | Emergency (ER) | payer MEDICAID ==
[~2019-01-19] VITALS: Ht 149.9 cm; Wt 75.3 kg
[2019-01-19 12:10] VITALS: BP_SYST 124
--- NOTE | 2019-01-19 12:18 | NUR ---
ASSUMED CARE, PT LAYING ON GURPARVIN IN ROOM 3, REPORTS BEING HERE FOR SEIZURES X 2 TODAY WITNESSED BY MOTHER WHO IS NOT AT BEDSIDE AT THIS TIME. PT AAOX4, IN NAD. RESP EVEN AND UNLABORED, ON RA @98%. REPORTS SHE HAS HISTORY OF SEIZURES IN WHICH SHE SEES A NEUROLOGIST AND RECENTLY UPPED HER DOSAGE TO 2500MG A DAY FROM 1500MG. PT DENIES ANY TRAUMA TO HEAD. NO OBVIOUS LAC OR INJURY NOTED. SEIZURE PADS PLACED, WAITING FOR ER MD VALENZUELA.
--- NOTE | 2019-01-19 13:03 | NUR ---
DR CURTIS IN ROOM FOR EXAM.
[2019-01-19] MEDS ORDERED: ONDANSETRON HCL 4 MG/2 ML VIAL IVP ONE (13:15)
[2019-01-19] MEDS ORDERED: NACL 0.9% 1,000 ML IV ONE (13:15)
[2019-01-19] MEDS ORDERED: KETOROLAC TROMETHAMINE 30 MG VIAL IVP ONE (13:15)
--- NOTE | 2019-01-19 13:23 | NUR ---
MEDICTAED ORDERED, WILL CONT TO MONITOR.
[2019-01-19 13:25] LABS: BASOPHILS % (AUTO) 0.5 % (0.0-2.0); EOSINOPHILS # (AUTO) 0.1 K/uL (0.0-0.4); EOSINOPHILS % (AUTO) 0.9 % (0.0-4.0); HEMATOCRIT 41.5 % (36-48); HEMOGLOBIN 13.8 g/dL (12.0-16.0); LYMPHOCYTES # (AUTO) 1.7 K/uL (1.0-5.5); LYMPHOCYTES % (AUTO) 17.9 % (20.5-51.5); MEAN CORPUSCULAR HEMOGLOBIN 29 pg (27-31); MEAN CORPUSCULAR HGB CONC 33 % (32-36); MEAN CORPUSCULAR VOLUME 86 fL (79.0-98.0); MONOCYTES # (AUTO) 0.3 K/uL (0.0-1.0); MONOCYTES % (AUTO) 3.2 % (1.7-9.3); NEUTROPHILS # (AUTO) 7.4 K/uL (1.8-7.7); NEUTROPHILS % (AUTO) 77.5 % (40.0-70.0); PLATELET COUNT (AUTO) 309 K/uL (130-430); RED BLOOD CELL COUNT(AUTO) 4.81 MIL/uL (4.2-6.2); RED CELL DISTRIBUTION WIDTH 14.6 % (9.0-15.0); WHITE BLOOD COUNT (AUTO) 9.5 K/uL (4.8-10.8)
[2019-01-19 13:40] LABS: CALCIUM 9.2 mg/dL (8.4-11.0); CREATININE 0.73 mg/dL (0.55-1.30); POTASSIUM 3.6 mmol/L (3.5-5.1)
[2019-01-19 13:45] LABS: ALBUMIN 3.9 g/dL (3.4-4.8); TOTAL BILIRUBIN 0.4 mg/dL (0.0-1.0)
--- NOTE | 2019-01-19 13:46 | NUR ---
PT REPORTS CONTINUED PAIN AFTER THE TORADOL IV, REQUESTING SOMETHING STRONGER. DR CURTIS WILL BE INFORMED. VSS. IV FLUIDS INFUSING WELL. VSS.
[2019-01-19] MEDS ORDERED: MORPHINE 4 MG/ML INJ. SYRINGE IVP ONE (14:00)
[2019-01-19 14:53] VITALS: BP_SYST 117
--- NOTE | 2019-01-19 14:55 | NUR ---
Patient given written and verbal discharge instructions and verbalizes understanding. ER MD discussed with patient the results and treatment provided. Patient in stable condition. ID arm band removed. IV catheter removed intact and dressing applied, no active bleeding. Patient educated on pain management and to follow up with PMD. Pain Scale . Opportunity for questions provided and answered. Medication side effect fact sheet provided.
== END 2019-01-19 14:55 | disposition home or self-care (01) ==
LOC: SED 12:08
DX: R56.9 Unspecified convulsions (principal); R11.2 Nausea with vomiting, unspecified; Z79.899 Other long term (current) drug therapy
CPT/HCPCS: 36415; 80053; 85025; 96361; 96374; 96375; 99283; J1885; J2270; J2405; J7030

== ENCOUNTER 2019-02-22 04:38 | Emergency (ER) | payer MEDICAID ==
[~2019-02-22] VITALS: Ht 149.9 cm; Wt 73.5 kg
[2019-02-22 04:44] VITALS: BP_SYST 126
--- NOTE | 2019-02-22 04:50 | NUR ---
Pt placed to ER bed 05, report given to MARIBEL Tubbs.
--- NOTE | 2019-02-22 04:55 | NUR ---
RECEIVED PATIENT AAOX4 S/P PETIT SEIZURE, AND ASTHMA EXACERBATION, PATIENT EXPRESS PAIN TO REAR UPPER SHOULDER AND REAR NECK AREA 9/10. PATIENT IN NAD. NO SEIZURE ACTIVITY SINCE ARIVAL TO ED. PENDING ED MD VALENZUELA.
--- NOTE | 2019-02-22 05:06 | NUR ---
Dr. Rosario bedside for Pt eval
[2019-02-22] MEDS ORDERED: MORPHINE 4 MG/ML INJ. SYRINGE IM ONE (05:15)
[2019-02-22 06:10] VITALS: BP_SYST 116
--- NOTE | 2019-02-22 06:10 | NUR ---
Patient given written and verbal discharge instructions and verbalizes understanding. ER MD discussed with patient the results and treatment provided. Patient in stable condition. ID arm band removed. Rx for motrin and norco po given. Patient educated on pain management and to follow up with PMD. Pain Scale 3/10, improved from 10/10. Opportunity for questions provided and answered. Medication side effect fact sheet provided.
== END 2019-02-22 06:10 | disposition home or self-care (01) ==
LOC: SED 04:38
DX: M54.6 Pain in thoracic spine (principal); G89.29 Other chronic pain; J45.909 Unspecified asthma, uncomplicated; R56.9 Unspecified convulsions; M79.2 Neuralgia and neuritis, unspecified; Z79.899 Other long term (current) drug therapy; Z90.49 Acquired absence of other specified parts of digestive tract
CPT/HCPCS: 96372; 99283; J2270

== ENCOUNTER 2019-03-11 09:04 | Emergency (ER) | payer MEDICAID ==
[~2019-03-11] VITALS: Ht 149.9 cm; Wt 74.8 kg
[2019-03-11 09:05] VITALS: BP_SYST 99
[2019-03-11] MEDS ORDERED: KETAMINE 30 MG/3 ML SYRINGE 10 MG in NS 100 ML IV ONE (09:30)
[2019-03-11] MEDS ORDERED: MORPHINE 2 MG/ML INJ. SYRINGE IVP ONE (09:30)
[2019-03-11 10:06] LABS: BASOPHILS # (AUTO) 0.1 K/uL (0.0-0.2); BASOPHILS % (AUTO) 1.3 % (0.0-2.0); EOSINOPHILS # (AUTO) 0.2 K/uL (0.0-0.4); EOSINOPHILS % (AUTO) 1.5 % (0.0-4.0); HEMATOCRIT 43.2 % (36-48); HEMOGLOBIN 14.4 g/dL (12.0-16.0); LYMPHOCYTES # (AUTO) 1.5 K/uL (1.0-5.5); MEAN CORPUSCULAR HEMOGLOBIN 28 pg (27-31); MEAN CORPUSCULAR HGB CONC 33 % (32-36); MEAN CORPUSCULAR VOLUME 86 fL (79.0-98.0); MONOCYTES # (AUTO) 0.4 K/uL (0.0-1.0); MONOCYTES % (AUTO) 4.1 % (1.7-9.3); NEUTROPHILS % (AUTO) 78.1 % (40.0-70.0); PLATELET COUNT (AUTO) 358 K/uL (130-430); RED BLOOD CELL COUNT(AUTO) 5.06 MIL/uL (4.2-6.2); RED CELL DISTRIBUTION WIDTH 15.1 % (9.0-15.0); WHITE BLOOD COUNT (AUTO) 10.3 K/uL (4.8-10.8)
[2019-03-11] MEDS ORDERED: KETAMINE 30 MG/3 ML SYRINGE ONE (10:13)
[2019-03-11 10:17] LABS: CALCIUM 9.5 mg/dL (8.4-11.0); CREATININE 0.64 mg/dL (0.55-1.30); POTASSIUM 4.5 mmol/L (3.5-5.1)
[2019-03-11 10:22] LABS: TOTAL BILIRUBIN 0.4 mg/dL (0.0-1.0)
[2019-03-11 11:04] VITALS: BP_SYST 111
[2019-03-11 11:15] LABS: BARBITURATE, URINE NEGATIVE (NEG <=200); BENZODIAZEPINE, URINE POSITIVE (NEG <=150); CANNABINOID, URINE NEGATIVE (NEG <=50); COCAINE, URINE NEGATIVE (NEG <=150); METHAMPHETAMINES SCREEN,URINE NEGATIVE (NEG <=500); OPIATE, URINE POSITIVE (NEG <=100); PHENCYCLIDINE SCREEN,URINE NEGATIVE (NEG <=25); UR TRICYCLIC ANTIDEPRESSANTS POSITIVE (NEG <=300); URINE AMPHETAMINE NEGATIVE (NEG <=500); URINE METHADONE NEGATIVE (NEG <=200); URINE OXYCODONE SCREEN POSITIVE (NEG <=100); URINE PROPOXYPHENE SCREEN NEGATIVE (NEG <=300)
== END 2019-03-11 11:04 | disposition home or self-care (01) ==
LOC: SED 09:04
DX: R56.9 Unspecified convulsions (principal); G89.29 Other chronic pain; M54.2 Cervicalgia; J45.909 Unspecified asthma, uncomplicated
CPT/HCPCS: 36415; 80053; 80307; 81002; 81025; 85025; 96374; 96375; 99283; J2270; J7040

== ENCOUNTER 2019-03-12 03:03 | Emergency (ER) | payer MEDICAID ==
[~2019-03-12] VITALS: Ht 149.9 cm; Wt 75.3 kg
[2019-03-12 03:15] VITALS: BP_SYST 112
--- NOTE | 2019-03-12 03:15 | NUR ---
Placed in room 3 . Placed on cardiac care nurse, blood pressure machine and pulse oximeter. To gown for exam. Side rails up.
--- NOTE | 2019-03-12 03:29 | NUR ---
ER Dr. Hutson at bedside examining patient.
--- NOTE | 2019-03-12 03:31 | NUR ---
Pt brought in by . Pt awake, alert, oriented x4. Pt states that she has new onset of seizure activity this year, and has had 12-15 seizures in the past "few" months. Pt states that she no longer takes her seizure medication as prescribed, only taking her morphine at home, and needs ativan and pain medication to help with her seizures. Pt states that she recalls having a 4 minute seizure prior to coming to the ED today. Pt denies trauma, oral trauma, falls. Pt denies chest pain, nausea, vomiting, diarrhea, shortness of breath. Pt resting in ED bed comfortably with seizure precautions in place. VSS.
--- NOTE | 2019-03-12 03:31 | NUR ---
Pt states Tubal Ligation approx 10 years ago
[2019-03-12] MEDS ORDERED: ONDANSETRON HCL 4 MG/2 ML VIAL IVP ONE (03:45)
[2019-03-12 04:10] LABS: BASOPHILS # (AUTO) 0.1 K/uL (0.0-0.2); BASOPHILS % (AUTO) 0.6 % (0.0-2.0); EOSINOPHILS # (AUTO) 0.4 K/uL (0.0-0.4); EOSINOPHILS % (AUTO) 5.4 % (0.0-4.0); HEMATOCRIT 39.1 % (36-48); HEMOGLOBIN 12.9 g/dL (12.0-16.0); LYMPHOCYTES # (AUTO) 2.9 K/uL (1.0-5.5); LYMPHOCYTES % (AUTO) 34.7 % (20.5-51.5); MEAN CORPUSCULAR HEMOGLOBIN 29 pg (27-31); MEAN CORPUSCULAR HGB CONC 33 % (32-36); MEAN CORPUSCULAR VOLUME 87 fL (79.0-98.0); MONOCYTES # (AUTO) 0.6 K/uL (0.0-1.0); MONOCYTES % (AUTO) 6.7 % (1.7-9.3); NEUTROPHILS # (AUTO) 4.4 K/uL (1.8-7.7); NEUTROPHILS % (AUTO) 52.6 % (40.0-70.0); PLATELET COUNT (AUTO) 312 K/uL (130-430); RED BLOOD CELL COUNT(AUTO) 4.51 MIL/uL (4.2-6.2); RED CELL DISTRIBUTION WIDTH 15.2 % (9.0-15.0); WHITE BLOOD COUNT (AUTO) 8.3 K/uL (4.8-10.8)
[2019-03-12] MEDS ORDERED: KETAMINE 30 MG/3 ML SYRINGE IVP ONE ×2 (04:15→06:15)
[2019-03-12 04:21] LABS: CALCIUM 7.9 mg/dL (8.4-11.0); CREATININE 0.59 mg/dL (0.55-1.30); POTASSIUM 3.9 mmol/L (3.5-5.1)
[2019-03-12 04:27] LABS: ALBUMIN 3.3 g/dL (3.4-4.8); TOTAL BILIRUBIN 0.2 mg/dL (0.0-1.0)
[2019-03-12] MEDS ORDERED: MAGNESIUM SULFATE 50 ML IV ONE (05:15)
--- NOTE | 2019-03-12 05:45 | NUR ---
Pt states that She is in unbearable pain, and requested "Some strong pain meds". Pt vitals within normal limits. Pt resting comfortably in ED bed.
[2019-03-12 05:55] LABS: BILIRUBIN,URINE NEGATIVE (NEGATIVE); BLOOD, URINE NEGATIVE (NEGATIVE); CLARITY/URINE CLEAR (CLEAR); COLOR,URINE YELLOW (YELLOW); GLUCOSE,URINE NEGATIVE (NEGATIVE); KETONES,URINE NEGATIVE (NEGATIVE); LEUKOCYTE ESTERASE ,URINE NEGATIVE (NEGATIVE); NITRITE, URINE NEGATIVE (NEGATIVE); PROTEIN URINE NEGATIVE (NEGATIVE); UROBILINOGEN,URINE 0.2 (0.2-1.0)
[2019-03-12] MEDS ORDERED: MORPHINE 2 MG/ML INJ. SYRINGE IVP ONE (06:15)
--- NOTE | 2019-03-12 06:20 | NUR ---
Pt medicated. Pt states she feels instant relief from all pain
[2019-03-12 06:46] VITALS: BP_SYST 128
== END 2019-03-12 06:46 | disposition home or self-care (01) ==
LOC: SED 03:03
DX: R56.9 Unspecified convulsions (principal); M79.10 Myalgia, unspecified site; J45.909 Unspecified asthma, uncomplicated
CPT/HCPCS: 36415; 80053; 81003; 81025; 82550; 85025; 96365; 96375; 96376; 99283; J2270; J2405; J3475

== ENCOUNTER 2019-03-22 12:49 | Emergency (ER) | payer MEDICAID ==
[~2019-03-22] VITALS: Ht 149.9 cm; Wt 73.9 kg
[2019-03-22 13:12] VITALS: BP_SYST 125
--- NOTE | 2019-03-22 13:15 | NUR ---
Placed in room 07 . Placed on vehicle monitor technician, blood pressure machine and pulse oximeter. To gown for exam. Side rails up.
[2019-03-22 14:09] LABS: BASOPHILS # (AUTO) 0.1 K/uL (0.0-0.2); BASOPHILS % (AUTO) 0.7 % (0.0-2.0); EOSINOPHILS # (AUTO) 0.3 K/uL (0.0-0.4); EOSINOPHILS % (AUTO) 3.3 % (0.0-4.0); HEMATOCRIT 41.9 % (36-48); LYMPHOCYTES # (AUTO) 1.6 K/uL (1.0-5.5); LYMPHOCYTES % (AUTO) 15.3 % (20.5-51.5); MEAN CORPUSCULAR HEMOGLOBIN 28 pg (27-31); MEAN CORPUSCULAR HGB CONC 33 % (32-36); MEAN CORPUSCULAR VOLUME 85 fL (79.0-98.0); MONOCYTES # (AUTO) 0.4 K/uL (0.0-1.0); MONOCYTES % (AUTO) 3.9 % (1.7-9.3); NEUTROPHILS # (AUTO) 8.2 K/uL (1.8-7.7); NEUTROPHILS % (AUTO) 76.8 % (40.0-70.0); PLATELET COUNT (AUTO) 346 K/uL (130-430); RED BLOOD CELL COUNT(AUTO) 4.92 MIL/uL (4.2-6.2); RED CELL DISTRIBUTION WIDTH 14.9 % (9.0-15.0); WHITE BLOOD COUNT (AUTO) 10.7 K/uL (4.8-10.8)
[2019-03-22 14:22] LABS: CALCIUM 9.3 mg/dL (8.4-11.0); CREATININE 0.59 mg/dL (0.55-1.30); POTASSIUM 3.5 mmol/L (3.5-5.1)
[2019-03-22 14:26] LABS: PHENYTOIN (DILANTIN) 1.1 ug/mL (10.0-20.0); TOTAL BILIRUBIN 0.3 mg/dL (0.0-1.0)
--- NOTE | 2019-03-22 15:02 | NUR ---
PATIENT PRESENTS TO THE ER WITH FOUR DAY HX OF PAIN TO NECK, LOWER BACK AND FULL HEAD AREA, WITH NAUSEA, VOMITING AND DIARRHEA WITH SEIZURES AND FEVER; NO TRAUMA, NO OTHER REMARKABLE S/S
--- NOTE | 2019-03-22 15:04 | NUR ---
PATIENT TO ER #7 AT 1315 AND ERMD EVALUATION AT 1851
[2019-03-22] MEDS: PHENYTOIN 100 MG CAPSULE PO ONE (15:19)
[2019-03-22] MEDS: LORazepam 1 MG TABLET PO ONE (15:19)
[2019-03-22] MEDS: KETOROLAC TROMETHAMINE 60 MG/2 ML VIAL IM ONE (15:21)
--- NOTE | 2019-03-22 16:36 | NUR ---
Patient given written and verbal discharge instructions and verbalizes understanding. ER MD discussed with patient the results and treatment provided. Patient in stable condition. ID arm band removed. IV discontinued as ordered by Dr. Ardon. Rx of Tramadol and Zofran given. Patient educated on pain management and to follow up with PMD. Pain Scale 0/10. Opportunity for questions provided and answered. Medication side effect fact sheet provided.
[2019-03-22] MEDS: PROCHLORPERAZINE EDISYLATE 10 MG/2 ML VIAL IM ONE (16:37)
[2019-03-22 16:49] VITALS: BP_SYST 121
== END 2019-03-22 16:49 | disposition home or self-care (01) ==
LOC: SED 12:49
DX: G43.911 Migraine, unspecified, intractable, with status migrainosus (principal); G89.29 Other chronic pain; R56.9 Unspecified convulsions; J45.909 Unspecified asthma, uncomplicated
CPT/HCPCS: 36415; 80053; 80185; 85025; 96372; 99283; J0780; J1885

== ENCOUNTER 2021-09-21 10:36 | Emergency (ER) | payer MEDICAID ==
[~2021-09-21] VITALS: Ht 149.9 cm; Wt 63.5 kg
[2021-09-21 11:02] VITALS: BP_SYST 117
--- NOTE | 2021-09-21 11:11 | NUR ---
Patient to ER bed 06 for evaluation. Side rails up. Report given to
--- NOTE | 2021-09-21 12:06 | NUR ---
DR HYLTON AT BEDSIDE EXAMINING THE PATIENT.
--- NOTE | 2021-09-21 12:13 | NUR ---
TRANSPORTED PT TO CT SCAN DEPT
--- NOTE | 2021-09-21 12:24 | NUR ---
BROUGHT PT BACK TO ROOM 6.
--- NOTE | 2021-09-21 12:33 | NUR ---
PT USED THE BATHROOM, URINE SAMPLE TAKEN AND SENT TO THE LAB.
[2021-09-21 12:49] LABS: BASOPHILS # (AUTO) 0.1 K/uL (0.0-0.2); EOSINOPHILS # (AUTO) 0.1 K/uL (0.0-0.4); EOSINOPHILS % (AUTO) 0.8 % (0.0-4.0); HEMATOCRIT 44.8 % (36-48); HEMOGLOBIN 14.8 g/dL (12.0-16.0); LYMPHOCYTES # (AUTO) 2.4 K/uL (1.0-5.5); LYMPHOCYTES % (AUTO) 18.2 % (20.5-51.5); MEAN CORPUSCULAR HEMOGLOBIN 28 pg (27-31); MEAN CORPUSCULAR HGB CONC 33 % (32-36); MEAN CORPUSCULAR VOLUME 84 fL (79.0-98.0); MONOCYTES # (AUTO) 0.6 K/uL (0.0-1.0); MONOCYTES % (AUTO) 4.2 % (1.7-9.3); NEUTROPHILS # (AUTO) 10.2 K/uL (1.8-7.7); NEUTROPHILS % (AUTO) 75.8 % (40.0-70.0); PLATELET COUNT (AUTO) 400 K/uL (130-430); RED BLOOD CELL COUNT(AUTO) 5.31 MIL/uL (4.2-6.2); WHITE BLOOD COUNT (AUTO) 13.4 K/uL (4.8-10.8)
[2021-09-21 13:04] LABS: CALCIUM 9.4 mg/dL (8.4-11.0); CREATININE 0.88 mg/dL (0.55-1.30); POTASSIUM 3.7 mmol/L (3.5-5.1)
[2021-09-21 13:09] LABS: ALBUMIN 3.8 g/dL (3.4-4.8); TOTAL BILIRUBIN 0.4 mg/dL (0.0-1.0)
[2021-09-21 13:42] LABS: BILIRUBIN,URINE NEGATIVE (NEGATIVE); BLOOD, URINE NEGATIVE (NEGATIVE); CLARITY/URINE SL CLOUDY (CLEAR); COLOR,URINE YELLOW (YELLOW); GLUCOSE,URINE NEGATIVE (NEGATIVE); KETONES,URINE TRACE (NEGATIVE); LEUKOCYTE ESTERASE ,URINE 1+ (NEGATIVE); NITRITE, URINE POSITIVE (NEGATIVE); PH,URINE 6.5 (5.0-8.0); PROTEIN URINE NEGATIVE (NEGATIVE); UROBILINOGEN,URINE 0.2 (0.2-1.0)
[2021-09-21 14:01] LABS: BARBITURATE, URINE NEGATIVE (NEG <=200); BENZODIAZEPINE, URINE NEGATIVE (NEG <=150); CANNABINOID, URINE NEGATIVE (NEG <=50); COCAINE, URINE NEGATIVE (NEG <=150); METHAMPHETAMINES SCREEN,URINE NEGATIVE (NEG <=500); OPIATE, URINE NEGATIVE (NEG <=100); PHENCYCLIDINE SCREEN,URINE NEGATIVE (NEG <=25); UR TRICYCLIC ANTIDEPRESSANTS NEGATIVE (NEG <=300); URINE AMPHETAMINE NEGATIVE (NEG <=500); URINE METHADONE NEGATIVE (NEG <=200); URINE OXYCODONE SCREEN NEGATIVE (NEG <=100); URINE PROPOXYPHENE SCREEN NEGATIVE (NEG <=300)
[2021-09-21 14:15] LABS: BACTERIA,URINE MANY /HPF (None Seen); RBC,URINE 0-3 /HPF (0-3)
[2021-09-21] MEDS ORDERED: cefTRIAXone 1 GM in D5W 50 ML IV ONE (14:30)
[2021-09-21] MEDS ORDERED: CEFU250T85 PO (14:33)
[2021-09-21] MEDS ORDERED: cefTRIAXone 1 GM VIAL ONE (14:54)
[2021-09-21] MEDS ORDERED: KETOROLAC TROMETHAMINE 30 MG VIAL IVP ONE (15:15)
[2021-09-21 15:54] VITALS: BP_SYST 122
--- NOTE | 2021-09-21 15:54 | NUR ---
Patient given written and verbal discharge instructions and verbalizes understanding. ER MD discussed with patient the results and treatment provided. Patient in stable condition. ID arm band removed. Rx of CEFTIN given. Patient educated on pain management and to follow up with PMD. Pain Scale 0/10. Opportunity for questions provided and answered. Medication side effect fact sheet provided.
== END 2021-09-21 15:54 | disposition home or self-care (01) ==
LOC: SED 10:36
DX: R56.9 Unspecified convulsions (principal); N39.0 Urinary tract infection, site not specified; R51.9 Headache, unspecified; J45.909 Unspecified asthma, uncomplicated; Z79.899 Other long term (current) drug therapy
CPT/HCPCS: 99284; 96365; 70450; 96375; 80307; 80053; 85025; 87086; 36415; 76376; 81000; J0696; J1885; J7060

== ENCOUNTER 2021-11-08 11:18 | Emergency (ER) | payer MEDICAID ==
[~2021-11-08] VITALS: Ht 165.1 cm; Wt 68.0 kg
[~2021-11-08 11:18] MED LIST changes: +CEFU250T85 PO
[2021-11-08] MEDS ORDERED: levETIRAcetam 500 MG TABLET PO ONE (11:30)
[2021-11-08] MEDS ORDERED: LORazepam 1 MG TABLET PO ONE (11:30)
[2021-11-08 11:33] VITALS: BP_SYST 103
[2021-11-08 12:09] LABS: CALCIUM 8.3 mg/dL (8.4-11.0); CREATININE 0.93 mg/dL (0.55-1.30)
[2021-11-08 12:14] LABS: TOTAL BILIRUBIN 0.1 mg/dL (0.0-1.0)
[2021-11-08 12:20] LABS: BASOPHILS # (AUTO) 0.1 K/uL (0.0-0.2); BASOPHILS % (AUTO) 0.7 % (0.0-2.0); EOSINOPHILS # (AUTO) 0.2 K/uL (0.0-0.4); EOSINOPHILS % (AUTO) 2.1 % (0.0-4.0); HEMOGLOBIN 11.6 g/dL (12.0-16.0); LYMPHOCYTES # (AUTO) 2.4 K/uL (1.0-5.5); LYMPHOCYTES % (AUTO) 24.7 % (20.5-51.5); MEAN CORPUSCULAR HEMOGLOBIN 28 pg (27-31); MEAN CORPUSCULAR HGB CONC 33 % (32-36); MEAN CORPUSCULAR VOLUME 85 fL (79.0-98.0); MONOCYTES # (AUTO) 0.4 K/uL (0.0-1.0); MONOCYTES % (AUTO) 4.3 % (1.7-9.3); NEUTROPHILS # (AUTO) 6.6 K/uL (1.8-7.7); NEUTROPHILS % (AUTO) 68.2 % (40.0-70.0); PLATELET COUNT (AUTO) 310 K/uL (130-430); RED BLOOD CELL COUNT(AUTO) 4.09 MIL/uL (4.2-6.2); RED CELL DISTRIBUTION WIDTH 15.6 % (9.0-15.0); WHITE BLOOD COUNT (AUTO) 9.7 K/uL (4.8-10.8)
[2021-11-08] MEDS ORDERED: IBUPROFEN 800 MG TABLET PO ONE (12:45)
[2021-11-08] MEDS ORDERED: NACL 0.9% 1,000 ML IV ONE (15:45)
[2021-11-08] MEDS ORDERED: LEVE500T9 PO (18:26)
[2021-11-08 18:39] VITALS: BP_SYST 102
== END 2021-11-08 18:39 | disposition home or self-care (01) ==
LOC: SED 11:18
DX: G40.909 Epilepsy, unspecified, not intractable, without status epilepticus (principal); J45.909 Unspecified asthma, uncomplicated; Z79.899 Other long term (current) drug therapy
CPT/HCPCS: 99285; 96360; 80053; 84703; 85025; 36415; 83605; J7030